=== PATIENT | male | born 1975 | race Caucasian/White ===

== ENCOUNTER 2020-03-10 03:31 | Emergency (ER) | payer OTHER ==
[~2020-03-10] VITALS: Ht 185.4 cm; Wt 78.9 kg
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
--- NOTE | 2020-03-10 03:50 | NUR ---
WELLNESS COACH AT BEDSIDE FOR BLOOD DRAW
[2020-03-10 03:58] LABS: BASOPHILS # (AUTO) 0.1 /CMM (0.0-0.2); BASOPHILS % (AUTO) 0.9 % (0.0-2.0); EOSINOPHILS % (AUTO) 5.5 % (0.0-6.0); HEMATOCRIT 42 % (39-51); LYMPHOCYTES # (AUTO) 1.5 /CMM (0.8-4.8); LYMPHOCYTES % (AUTO) 22.5 % (20.0-44.0); MEAN CORPUSCULAR HGB CONC 33 g/dl (31.0-36.0); MEAN CORPUSCULAR VOLUME 88 fL (80-96); MONOCYTES # (AUTO) 0.5 /CMM (0.1-1.30); MONOCYTES % (AUTO) 7.5 % (2.0-12.0); NEUTROPHILS # (AUTO) 4.4 /CMM (1.8-8.9); NEUTROPHILS % (AUTO) 63.6 % (43.0-81.0); PLATELET COUNT (AUTO) 326 /CMM (150-450); WHITE BLOOD COUNT (AUTO) 6.9 K/uL (4.3-11.0)
[2020-03-10 04:08] LABS: CALCIUM, SERUM 9.5 mg/dL (8.5-10.1); CARBON DIOXIDE 28 mmol/L (21-32); CHLORIDE 105 mmol/L (98-107); GLUCOSE 128 mg/dL (74-106); POTASSIUM 4.7 mmol/L (3.5-5.1); SODIUM SERUM 140 mmol/L (136-145); UREA NITROGEN, BLOOD 11 mg/dL (7-18)
[2020-03-10 04:13] LABS: ALANINE AMINOTRANSFERASE 21 U/L (12-78); ALBUMIN 4.1 g/dL (3.4-5.0); ALKALINE PHOSPHATASE 60 U/L (46-116); ASPARTATE AMINOTRANSFERASE 19 U/L (15-37); BILIRUBIN,DIRECT 0.1 mg/dL (0.0-0.2); BILIRUBIN,TOTAL 0.2 mg/dL (0.2-1.0); TOTAL PROTEIN, SERUM 8.2 g/dL (6.4-8.2)
[2020-03-10 04:14] LABS: ALCOHOL, BLOOD < 3 mg/dL (0-0)
[2020-03-10] MEDS ORDERED: LIDOCAINE 2% JEL UROJET 10 ML MM ONE (05:05)
--- NOTE | 2020-03-10 05:12 | NUR ---
URINE COLLECTED AND SENT TO LAB
[2020-03-10 05:20] LABS: BILIRUBIN,URINE NEGATIVE (NEGATIVE); COLOR,URINE YELLOW (YELLOW); LEUKOCYTE ESTERASE ,URINE NEGATIVE (NEGATIVE); NITRITE, URINE NEGATIVE (NEGATIVE); PROTEIN,URINE NEGATIVE (NEGATIVE); UGLUCOSE NEGATIVE (NEGATIVE); UROBILINOGEN,URINE 0.2 EU/dL (0.2)
--- NOTE | 2020-03-10 06:10 | NUR ---
ART, CRISIS TEAM ELECTRICAL SIGN SERVICER AT BEDSIDE
--- NOTE | 2020-03-10 06:20 | NUR ---
Leni sprague in ED - 03/10/20 at 0707 by JENNIFER ART, TERRAZZO JOURNEYMAN AT BEDSIDE FOR EVALUATION
--- NOTE | 2020-03-10 07:07 | NUR ---
CLINICAL INFORMATION FAXED TO [facility]
--- NOTE | 2020-03-10 10:00 | NUR ---
BERNADETTE followed up and refaxed clinicals to Alexand[facility] TEL:[phone] FAX:[phone]. Alexandre stated he will hold a male bed and expedite the process BERNADETTE will be available as needed.
[2020-03-10 10:05] VITALS: BP 125/77
--- NOTE | 2020-03-10 10:31 | NUR ---
ACCEPTING MD: DR. ALMANZAR, UNIT 2, [id number] OLIVER. GEORGE JUÁREZ
--- NOTE | 2020-03-10 10:39 | NUR ---
[facility] WITH [facility], TRIP NUMBER: [id number] ETA [id number]
--- NOTE | 2020-03-10 11:23 | NUR ---
report given to nurse diop at [facility]. transport ambulance at bedside. stable condition.
== END 2020-03-10 11:25 ==
LOC: ER 03:31
DX: R45.851 Suicidal ideations (principal); R44.0 Auditory hallucinations; N40.0 Benign prostatic hyperplasia without lower urinary tract symptoms; Z91.5 Personal history of self-harm; Z20.822 Contact with and (suspected) exposure to COVID-19; F17.200 Nicotine dependence, unspecified, uncomplicated; I10 Essential (primary) hypertension
CPT/HCPCS: 36415; 80048; 80076; 80299; 80307; 80320; 81003; 85025; 87426; 99285; C9803; G0480; J3490